=== PATIENT | female | born 1995 | race American Indian/Alaskan Native ===

== ENCOUNTER 2021-03-08 11:00 | Emergency (ER) | payer SELFPAY ==
[2021-03-08 11:40] VITALS: BP 110/68
--- NOTE | 2021-03-08 11:40 | Emergency Department Report ---
ED N/V/D HPI - General Chief complaint: Nausea/Vomiting/Diarrhea Stated complaint: CAN'T ANYTHING DOWN Time Seen by Provider: 03/08/21 11:39 Source: patient Mode of arrival: Ambulatory Limitations: No Limitations - History of Present Illness Initial comments: 25-year-old female who reports no significant past medical history presents ER today with complaints of nausea vomiting diarrhea. She states that her symptoms started 3 days ago. She reports associated diffuse abdominal discomfort, urinary frequency as well as low back pain. She does admit that she was around one of her friends who had similar symptoms of a stomach virus. She reports no bad food intake or recent travel or recent antibiotic use. She denies any fever or chills. She states that her last menstrual cycle was towards the end of January. Reports no additional symptoms at this time. MD complaint: nausea, vomiting, diarrhea, abdominal pain -: days(s) (3) - Related Data Previous Rx's Medication Instructions Recorded Last Taken Type Ondansetron [Zofran Odt] 4 mg PO Q8HR PRN #15 tab.rapdis 03/08/21 Unknown Rx cephALEXin [Keflex] 500 mg PO Q6HR #30 capsule 03/08/21 Unknown Rx Allergies Allergy/AdvReac Type Severity Reaction Status Date / Time amoxicillin Allergy Hives Verified 03/08/21 11:09 ibuprofen [From Motrin] Allergy Vomiting Verified 03/08/21 11:14 ED Review of Systems ROS: Stated complaint: CAN'T ANYTHING DOWN Other details as noted in HPI Comment: All other systems reviewed and negative Constitutional: denies: chills, fever Eyes: denies: eye pain, eye discharge, vision change ENT: denies: ear pain, throat pain, dental pain, hearing loss, epistaxis, congestion Respiratory: denies: cough, shortness of breath, SOB with exertion, SOB at rest, wheezing Cardiovascular: denies: chest pain, palpitations, dyspnea on exertion, edema, syncope, paroxysmal nocturnal dyspnea Gastrointestinal: abdominal pain, nausea, vomiting, diarrhea. denies: constipation, hematemesis, melena Genitourinary: frequency. denies: urgency, dysuria, hematuria, discharge, abnormal menses Musculoskeletal: denies: back pain, joint swelling, arthralgia Skin: denies: rash, lesions, change in color, change in hair/nails Neurological: denies: headache, weakness, numbness, paresthesias, confusion, abnormal gait, vertigo Psychiatric: denies: anxiety, depression, auditory hallucinations, visual hallucinations, homicidal thoughts, suicidal thoughts Hematological/Lymphatic: denies: easy bleeding, easy bruising, swollen glands ED Past Medical Hx - Past Medical History Previous Medical History?: No - Surgical History Past Surgical History?: Yes Additional Surgical History: Throat x 2, Right wrist surgery - Social History Smoking Status: Current Every Day Smoker Substance Use Type: Marijuana - Medications Home Medications: Home Medications Medication Instructions Recorded Confirmed Last Taken Type Ondansetron [Zofran Odt] 4 mg PO Q8HR PRN #15 tab.rapdis 03/08/21 Unknown Rx cephALEXin [Keflex] 500 mg PO Q6HR #30 capsule 03/08/21 Unknown Rx ED Physical Exam - General Limitations: No Limitations General appearance: alert, in no apparent distress - Head Head exam: Present: atraumatic, normocephalic, normal inspection - Eye Eye exam: Present: normal appearance, PERRL, EOMI Pupils: Present: normal accommodation - ENT ENT exam: Present: normal exam, mucous membranes moist - Neck Neck exam: Present: normal inspection, full ROM - Respiratory Respiratory exam: Present: normal lung sounds bilaterally. Absent: respiratory distress, wheezes, rales, rhonchi - Cardiovascular Cardiovascular Exam: Present: regular rate, normal rhythm, normal heart sounds - GI/Abdominal GI/Abdominal exam: Present: soft. Absent: distended, tenderness, guarding, rebound - Neurological Exam Neurological exam: Present: alert, oriented X3, CN II-XII intact, normal gait - Psychiatric Psychiatric exam: Present: normal affect, normal mood - Skin Skin exam: Present: intact ED Course Vital Signs 03/08/21 11:12 Temperature 98.5 F Pulse Rate 94 H Respiratory 16 Rate Blood Pressure 110/68 O2 Sat by Pulse 98 Oximetry ED Medical Decision Making - Lab Data Result diagrams: 03/08/21 13:18 03/08/21 13:18 - Radiology Data Radiology results: report reviewed [facility] [address] [place] [address] Ultrasound Report Signed Patient: JUAN M BENAVIDEZ MR#: [id number] [birth year] : 1995 Acct:[id number] Age/Sex: 25 / F ADM Date: 03/08/21 Loc: ED Attending Dr: Ordering Physician: CARLO JOHNSON Date of Service: 03/08/21 Procedure(s): US OB transvaginal Accession Number(s): [id number] cc: CARLO JOHNSON ULTRASOUND OBSTETRIC INDICATION / CLINICAL INFORMATION: abdominal pain/. Pelvic pain / cramping. Serum hCG = 340.3. Clinical Gestational Age (GA) in weeks, days: 7, 0 TECHNIQUE: Transvaginal. COMPARISON: None available. FINDINGS: UTERUS: No intrauterine . No acute abnormality. ADNEXA: Right adnexal fluid collection measuring 0.8 cm with surrounding circumferential soft tissue. No definite yolk sac or pole. Left ovary not definitely vi sualized. FREE FLUID: Small amount of free fluid in the cul-de-sac. ADDITIONAL FINDINGS: None. IMPRESSION: 1. No acute or . 2. Right adnexal fluid collection with no definite yolk sac or pole. Right adnexal ectopic cannot be excluded. 3. Small amount of free fluid in the cul-de-sac. CRITICAL RESULT Time of Discovery (TELESALES SPECIALIST/CDT): 2:00 PM Time of Communication (TELESALES SPECIALIST/CDT): 2:05 PM Licensed Practitioner Receiving Report: Nurse Edmond in the ED Read-Back Performed: Yes. Signer Name: Ney Carrasco MD Signed: 03/08/2021 3:09 PM Workstation Name: [id number] Transcribed By: DT Dictated By: Eugene Carrasco MD Electronically Authenticated By: Eugene Carrasco MD Signed Date/Time: 03/08/21 1509 DD/ 1578 TD/TT: - Medical Decision Making Patient urinalysis was positive for UTI. hCG was positive. Patient had eloped from the ER but was called to come back given her results. Labs were obtained, CBC and a CMP unremarkable. Quant hCG measured at 340. Ultrasound showed No acute or 2. Right adnexal fluid collection with no definite yolk sac or pole. Right adnexal ectopic cannot be excluded. Small amount of free fluid in the cul-de-sac. Discussed results with patient. She stated that she has not been having much abdominal nor pelvic pain just Discomfort from when she would vomit or have diarrhea. She is not currently having any abdominal pain. She has a soft nontender abdomen. She denies any abnormal vaginal bleeding. She is currently not toxic or any acute distress. She appears her hydrated. Her vital signs are stable. Discussed case with Dr. Retana, given the low quant hCG, she still feels like is too early to truly tell and recommend that patient follow-up in outpatient clinic in 7 days for repeat quant measurement and ultrasound. In the meantime patient will be treated for her UTI, with antibiotics as well as given medication to help with her vomiting and diarrhea. Discussed recommendation per discussion with BR[facility]EL[facility] SEWING MACHINE OPERATOR, patient expressed understanding of all instructions and agree with plan. Patient stable at time of discharge. Critical care attestation.: If time is entered above; I have spent that time in minutes in the direct care of this critically ill patient, excluding procedure time. ED Disposition Clinical Impression: UTI (urinary tract infection), Gastroenteritis, Early stage of Disposition: 01 HOME / SELF CARE / HOMELESS Is pt being admited?: No Does the pt Need Aspirin: No Condition: Stable Instructions: Viral Gastroenteritis, Adult, Srxa-eo-[id number], First Trimester of , Rrss-[id number], Food Choices to Help Relieve Diarrhea, Adult, Urinary Tract Infection, Adult, [id number] Additional Instructions: Recommend I take the Zofran as prescribed to help with nausea. Recommend taking Tylenol as needed for any pain as this is the safest thing to take in . It is important that you follow-up with BRIM WELT SEWING MACHINE OPERATOR listed on your discharge instructions in 7 days for repeat quant hCG but return sooner to the ER if at any point you develop severe low abdominal/pelvic pain and or vaginal bleeding. Prescriptions: cephALEXin [Keflex] 500 mg PO Q6HR #30 capsule Ondansetron [Zofran Odt] 4 mg PO Q8HR PRN #15 tab.rapdis PRN Reason: Vomiting Referrals: [facility] [Provider Group] - 3-5 Days (Follow up in 7 days ) [facility] [Provider Group] - 3-5 Days (Follolw up in 7 days ) Forms: Work/School Release Form(ED) Time of Disposition: 15:33
[2021-03-08 12:40] LABS: Bacteria,Urine 4+ /HPF (Negative); Bilirubin,Urine NEG (Negative); Blood,Urine NEG (Negative); Color,Urine Yellow (Yellow); Mucus,Urine 3+ /HPF; Protein,Urine <15 mg/dL mg/dL (Negative)
[2021-03-08 12:41] LABS: HCG Qualitative,Urine Positive (Negative)
[2021-03-08] MEDS ORDERED: ONDANSETRON 4 MG ODT TAB PO ONE (13:16)
[2021-03-08 13:47] LABS: Basophils % (Auto) 0.5 % (0.0-1.8); Eosinophils % (Auto) 0.5 % (0.0-4.3); Hematocrit 37.9 % (30.3-42.9); Hemoglobin 12.9 gm/dl (10.1-14.3); Lymphocytes # (Auto) 1.7 K/mm3 (1.2-5.4); Lymphocytes % (Auto) 29.8 % (13.4-35.0); Mean Corpuscular HGB Conc 34 % (30-34); Mean Corpuscular Volume 97 fl (79-97); Monocytes # (Auto) 0.6 K/mm3 (0.0-0.8); Monocytes % (Auto) 10.4 % (0.0-7.3); Platelet Count 263 K/mm3 (140-440); Red Blood Count 3.92 M/mm3 (3.65-5.03); Red Cell Distribution Width 13.1 % (13.2-15.2)
[2021-03-08 14:06] LABS: Alanine Aminotransferase 18 units/L (7-56); Blood Urea Nitrogen 8 mg/dL (7-17); Calcium 9.2 mg/dL (8.4-10.2); Hemolysis Index 2
[2021-03-08 14:09] LABS: BUN/Creatinine Ratio 16
--- NOTE | 2021-03-08 15:13 | Ultrasound Report ---
ULTRASOUND OBSTETRIC INDICATION / CLINICAL INFORMATION: abdominal pain/. Pelvic pain / cramping. Serum hCG = 340.3 . Clinical Gestational Age (GA) in weeks, days: 7, 0 TECHNIQUE: Transvaginal. COMPARISON: None available. FINDINGS: UTERUS: No intrauterine . No acute abnormality. ADNEXA: Right adnexal fluid collection measuring 0.8 cm with surrounding circumferential soft tissue. No definite yolk sac or pole. Left ovary not definitely visualized. FREE FLUID: Small amount of free fluid in the cul-de-sac. ADDITIONAL FINDINGS: None. IMPRESSION: 1. No acute or . 2. Right adnexal fluid collection with no definite yolk sac or pole. Right adnexal ectopic preg laxmi cannot be excluded. 3. Small amount of free fluid in the cul-de-sac. CRITICAL RESULT Time of Discovery (RETURNS CLERK/CDT): 2:00 PM Time of Communication (RETURNS CLERK/CDT): 2:05 PM Licensed Practitioner Receiving Report: Nurse Edmond in the ED Read-Back Performed: Yes. Signer Name: Ney Carrasco MD Signed: 03/08/2021 3:09 PM Workstation Name: [id number]
== END 2021-03-08 18:49 | disposition home or self-care (01) ==
LOC: ED 11:00
DX: O23.41 Unspecified infection of urinary tract in pregnancy, first trimester (principal); O26.891 Other specified pregnancy related conditions, first trimester; Z3A.01 Less than 8 weeks gestation of pregnancy; K52.9 Noninfective gastroenteritis and colitis, unspecified; Z88.0 Allergy status to penicillin; Z88.8 Allergy status to other drugs, medicaments and biological substances; F17.200 Nicotine dependence, unspecified, uncomplicated; F12.90 Cannabis use, unspecified, uncomplicated
CPT/HCPCS: 36415; 76817; 80053; 81001; 81025; 84702; 85025; 87086; 99284; Q0162

== ENCOUNTER 2021-03-15 09:53 | Emergency (ER) | payer MEDICAID ==
--- NOTE | 2021-03-15 11:06 | Emergency Department Report ---
ED HPI - General Chief complaint: Abdominal Pain Stated complaint: MILD CRAMPS EARLY Time Seen by Provider: 03/15/21 11:00 Source: patient Mode of arrival: Ambulatory Limitations: No Limitations - History of Present Illness Initial comments: Patient is a 25-year-old female presenting to the emergency room stating that she wants to be rechecked. She states that she was unable to get an appointment with an GARAGE ATTENDANT so she returned to the emergency room to be reevaluated. Patient was evaluated in the emergency department on 03/08/2021, her hCG quant at that time was 340. She had ultrasound performed at that time which showed 1. No acute or . 2. Right adnexal fluid collection with no definite yolk sac or pole. Right adnexal ectopic cannot be excluded. 3. Small amount of free fluid in the cul-de-sac. Patient was advised to have close GARAGE ATTENDANT follow-up. She states that she was unable to follow-up. She states that she has some mild lower abdominal cramping but denies any significant pain. She denies any fever, vomiting, diarrhea, urinary symptoms, vaginal bleeding. She states her last menstrual cycle was 01/13/2021. She states this is her first . - Related Data Previous Rx's Medication Instructions Recorded Last Taken Type Ondansetron [Zofran Odt] 4 mg PO Q8HR PRN #15 tab.rapdis 03/08/21 Unknown Rx cephALEXin [Keflex] 500 mg PO Q6HR #30 capsule 03/08/21 Unknown Rx Allergies Allergy/AdvReac Type Severity Reaction Status Date / Time amoxicillin Allergy Hives Verified 03/15/21 10:05 ibuprofen [From Motrin] Allergy Vomiting Verified 03/15/21 10:05 ED Review of Systems ROS: Stated complaint: MILD CRAMPS EARLY Other details as noted in HPI Comment: All other systems reviewed and negative ED Past Medical Hx - Past Medical History Previous Medical History?: No - Surgical History Additional Surgical History: Throat x 2, Right wrist surgery - Social History Smoking Status: Never Smoker Substance Use Type: None - Medications Home Medications: Home Medications Medication Instructions Recorded Confirmed Last Taken Type Ondansetron [Zofran Odt] 4 mg PO Q8HR PRN #15 tab.rapdis 03/08/21 Unknown Rx cephALEXin [Keflex] 500 mg PO Q6HR #30 capsule 03/08/21 Unknown Rx ED Physical Exam - General Limitations: No Limitations General appearance: alert, in no apparent distress - Head Head exam: Present: atraumatic, normocephalic - Eye Eye exam: Present: normal appearance - ENT ENT exam: Present: mucous membranes moist - Respiratory Respiratory exam: Present: normal lung sounds bilaterally. Absent: respiratory distress, wheezes, rales, rhonchi, stridor, chest wall tenderness, accessory muscle use, decreased breath sounds, prolonged expiratory - Cardiovascular Cardiovascular Exam: Present: regular rate, normal rhythm, normal heart sounds. Absent: systolic murmur, diastolic murmur, rubs, gallop - GI/Abdominal GI/Abdominal exam: Present: soft, normal bowel sounds. Absent: distended, tenderness, guarding, rebound, rigid - Neurological Exam Neurological exam: Present: alert, oriented X3 - Psychiatric Psychiatric exam: Present: normal affect, normal mood - Skin Skin exam: Present: warm, dry, intact ED Course Vital Signs 03/15/21 03/15/21 10:10 12:39 Temperature 98.5 F Pulse Rate 83 Respiratory 20 Rate Blood Pressure 96/53 Blood Pressure 127/61 [Right] O2 Sat by Pulse 96 Oximetry ED Medical Decision Making - Radiology Data Radiology results: report reviewed Ordering Physician: ALEXIS EDUARDO Date of Service: 03/15/21 Procedure(s): US OB transvaginal Accession Number(s): [id number] cc: ALEXIS EDUARDO ULTRASOUND OBSTETRIC INDICATION: , cramping. TECHNIQUE: Transabdominal and Transvaginal. COMPARISON: OB ultrasound dated 03/08/2021. FINDINGS: GESTATIONAL SAC: Well-defined oval shape and intrauterine in location. Gestational sac diameter measures 0.64 cm, consistent with an estimated age of 5 weeks, 2 days. YOLK SAC: Present. EMBRYO/FETUS: None seen. ADNEXA: A right ovarian hypoechoic structure is again seen measuring 1.2 x 1.1 cm, previously 1.0 x 0.6 cm. No other significant abnormalities. FREE FLUID: None. ADDITIONAL FINDINGS: None. IMPRESSION: 1. Early intrauterine as above without visualization of a pole. Estimated gestational age is 5 weeks, 2 days. 2. Probable evolving right ovarian corpus luteal cyst. Signer Name: Marshal Orozco MD Signed: 03/15/2021 12:21 PM Workstation Name: [id number] Transcribed By: PAUL Dictated By: Marshal Orozco MD Electronically Authenticated By: Marshal Orozco MD Signed Date/Time: 03/15/21 1221 DD/ 1217 TD/TT: - Medical Decision Making Patient is a 25-year-old female presenting to the emergency room stating that she wants to be rechecked. She states that she was unable to get an appointment with an GARAGE ATTENDANT so she returned to the emergency room to be reevaluated. Patient was evaluated in the emergency department on 03/08/2021, her hCG quant at that time was 340. She had ultrasound performed at that time which showed 1. No acute or . 2. Right adnexal fluid collection with no definite yolk sac or pole. Right adnexal ectopic cannot be excluded. 3. Small amount of free fluid in the cul-de-sac. Patient was advised to have close GARAGE ATTENDANT follow-up. She states that she was unable to follow-up. She states melissa t she has some mild lower abdominal cramping but denies any significant pain. She denies any fever, vomiting, diarrhea, urinary symptoms, vaginal bleeding. She states her last menstrual cycle was 01/13/2021. She states this is her first . Vitals are stable. No abdominal tenderness on exam, no guarding, no rebound, no rigidity, normal bowel sounds. hCG quant has increased appropriately from previous, her hCG quant is 4809. OB US: 1. Early intrauterine as above without visualization of a pole. Estimated gestational age is 5 weeks, 2 days. 2. Probable evolving right ovarian corpus luteal cyst. Discussed all results with patient and answer questions. Discussed the importance of GARAGE ATTENDANT follow-up. Advised patient May take Tylenol as needed for any cramping. Increase your fluid intake. Please practice pelvic rest, no sexual intercourse, no douching, no tampons. Follow-up with GARAGE ATTENDANT. Return to emergency room for any new or worsening symptoms. Critical care attestation.: If time is entered above; I have spent that time in minutes in the direct care of this critically ill patient, excluding procedure time. ED Disposition Clinical Impression: Abdominal cramping Qualifiers: Weeks of gestation: less than 8 weeks Qualified Code(s): Z3A.01 - Less than 8 weeks gestation of Ovarian cyst Qualifiers: Laterality: right Qualified Code(s): N83.201 - Unspecified ovarian cyst, right side Disposition: HOME / SELF CARE / HOMELESS Is pt being admited?: No Does the pt Need Aspirin: No Condition: Stable Instructions: Ovarian Cyst, First Trimester of , Abdominal Pain (ED) Additional Instructions: May take Tylenol as needed for any cramping. Increase your fluid intake. Please practice pelvic rest, no sexual intercourse, no douching, no tampons. Follow-up with GARAGE ATTENDANT. Return to emergency room for any new or worsening symptoms. Referrals: [facility] [Provider Group] - 2-3 Days Time of Disposition: 12:33
--- NOTE | 2021-03-15 12:25 | Ultrasound Report ---
ULTRASOUND OBSTETRIC INDICATION: , cramping. TECHNIQUE: Transabdominal and Transvaginal. COMPARISON: OB ultrasound dated 03/08/2021. FINDINGS: GESTATIONAL SAC: Well-defined oval shape and intrauterine in location. Gestational sac diameter measu res 0.64 cm, consistent with an estimated age of 5 weeks, 2 days. YOLK SAC: Present. EMBRYO/FETUS: None seen. ADNEXA: A right ovarian hypoechoic structure is again seen measuring 1.2 x 1.1 cm, previously 1.0 x 0 .6 cm. No other significant abnormalities. FREE FLUID: None. ADDITIONAL FINDINGS: None. IMPRESSION: 1. Early intrauterine as above without visualization of a pole. Estimated gestational age is 5 weeks, 2 days. 2. Probable evolving right ovarian corpus luteal cyst. Signer Name: Marshal Orozco MD Signed: 03/15/2021 12:21 PM Workstation Name: [id number]
[2021-03-15 12:39] VITALS: BP 127/61
== END 2021-03-15 12:40 | disposition home or self-care (01) ==
LOC: ED 09:53
DX: O26.891 Other specified pregnancy related conditions, first trimester (principal); O34.81 Maternal care for other abnormalities of pelvic organs, first trimester; Z3A.01 Less than 8 weeks gestation of pregnancy; R10.30 Lower abdominal pain, unspecified; Z98.890 Other specified postprocedural states; Z88.0 Allergy status to penicillin; Z88.6 Allergy status to analgesic agent
CPT/HCPCS: 36415; 76801; 76817; 84702; 99283; 99284

== ENCOUNTER 2021-04-24 10:34 | Emergency (ER) | payer MEDICAID ==
--- NOTE | 2021-04-24 11:35 | Emergency Department Report ---
ED HPI - General Stated complaint: /VOMITING/CRAMPS Time Seen by Provider: 04/24/21 11:33 Source: patient Mode of arrival: Ambulatory Limitations: No Limitations - History of Present Illness Initial comments: G1 COMES TO ER WITH VOMITING ASSOCIATED WITH PREG ALSO CO B LOWER QUAD PAIN NO VAG DC NO VAG BLEEDING LMP 02-08 Complaint: abdominal pain -: Gradual, days(s) Radiation: LLQ, RLQ Severity: mild Severity scale (0 -10): 3 Quality: cramping Consistency: constant Improves with: none Worsens with: none Associated symptoms: denies other symptoms Vaginal bleeding: none :: Yes - Related Data : 1 Previous Rx's Medication Instructions Recorded Last Taken Type Ondansetron [Zofran Odt] 4 mg PO Q8HR PRN #15 tab.rapdis 03/08/21 Unknown Rx cephALEXin [Keflex] 500 mg PO Q6HR #30 capsule 03/08/21 Unknown Rx Allergies Allergy/AdvReac Type Severity Reaction Status Date / Time amoxicillin Allergy Hives Verified 03/15/21 10:05 ibuprofen [From Motrin] Allergy Vomiting Verified 03/15/21 10:05 ED Review of Systems ROS: Stated complaint: /VOMITING/CRAMPS Other details as noted in HPI Comment: All other systems reviewed and negative ED Past Medical Hx - Past Medical History Previous Medical History?: No - Surgical History Additional Surgical History: Throat x 2, Right wrist surgery - Social History Smoking Status: Never Smoker Substance Use Type: None - Medications Home Medications: Home Medications Medication Instructions Recorded Confirmed Last Taken Type Ondansetron [Zofran Odt] 4 mg PO Q8HR PRN #15 tab.rapdis 03/08/21 Unknown Rx cephALEXin [Keflex] 500 mg PO Q6HR #30 capsule 03/08/21 Unknown Rx ED Physical Exam - General General appearance: alert, in no apparent distress - Head Head exam: Present: atraumatic, normocephalic - Eye Eye exam: Present: normal appearance - ENT ENT exam: Present: mucous membranes moist - Neck Neck exam: Present: normal inspection - Respiratory Respiratory exam: Present: normal lung sounds bilaterally. Absent: respiratory distress - Cardiovascular Cardiovascular Exam: Present: regular rate, normal rhythm. Absent: systolic murmur, diastolic murmur, rubs, gallop - GI/Abdominal GI/Abdominal exam: Present: soft, normal bowel sounds - Extremities Exam Extremities exam: Present: normal inspection - Back Exam Back exam: Present: normal inspection - Neurological Exam Neurological exam: Present: alert, oriented X3 - Psychiatric Psychiatric exam: Present: normal affect, normal mood - Skin Skin exam: Present: warm, dry, intact, normal color. Absent: rash ED Course Vital Signs 04/24/21 11:32 Temperature 98.2 F Pulse Rate 77 Respiratory 16 Rate Blood Pressure 98/43 [Left] O2 Sat by Pulse 98 Oximetry - Reevaluation(s) Reevaluation #1: 04/24/21 14:20 NO VOMITING IN ER ED Medical Decision Making - Lab Data Result diagrams: 04/24/21 11:40 04/24/21 11:46 - Radiology Data Radiology results: report reviewed, image reviewed NO ECTOPIC - Medical Decision Making Labs 04/24/21 04/24/21 04/24/21 11:40 11:40 11:40 WBC 5.1 RBC 3.70 Hgb 12.3 Hct 35.6 MCV 96 MCH 33 H MCHC 35 H RDW 13.0 L Plt Count 190 Lymph % (Auto) 38.6 H [place] % (Auto) 8.2 H Eos % (Auto) 1.2 Baso % (Auto) 1.6 Lymph # (Auto) 2.0 [place] # (Auto) 0.4 Eos # (Auto) 0.1 Baso # (Auto) 0.1 Seg Neutrophils % 50.4 Seg Neutrophils # 2.6 PT 14.0 INR 0.97 Sodium Potassium Chloride Carbon Dioxide Anion Gap BUN Creatinine Estimated GFR BUN/Creatinine Ratio Glucose Calcium HCG, Quant [id number] H 04/24/21 11:46 WBC RBC Hgb Hct MCV MCH MCHC RDW Plt Count Lymph % (Auto) [place] % (Auto) Eos % (Auto) Baso % (Auto) Lymph # (Auto) [place] # (Auto) Eos # (Auto) Baso # (Auto) Seg Neutrophils % Seg Neutrophils # PT INR Sodium 136 L Potassium 4.2 Chloride 104.4 Carbon Dioxide 21 L Anion Gap 15 BUN 10 Creatinine 0.4 L Estimated GFR > 60 BUN/Creatinine Ratio 25 Glucose 76 Calcium 9.8 HCG, Quant Vital Signs 04/24/21 11:32 Temperature 98.2 F Pulse Rate 77 Respiratory 16 Rate Blood Pressure 98/43 [Left] O2 Sat by Pulse 98 Oximetry 1400 LEFT AMA- DUE TO WAIT REFUSED TO GIVE URINE - Differential Diagnosis RO ECTOPIC/AB Critical care attestation.: If time is entered above; I have spent that time in minutes in the direct care of this critically ill patient, excluding procedure time. ED Disposition Clinical Impression: , Vomiting Abdominal pain Qualifiers: Abdominal location: lower abdomen, unspecified Qualified Code(s): R10.30 - Lower abdominal pain, unspecified Disposition: 07 LEFT AGAINST MEDICAL ADVICE Is pt being admited?: No Does the pt Need Aspirin: No Condition: Stable Referrals: PRIMARY CARE, [Primary Care Provider] - 3-5 Days Time of Disposition: 13:57
[2021-04-24 11:36] VITALS: BP 98/43
[2021-04-24 12:06] LABS: Basophils # (Auto) 0.1 K/mm3 (0.0-0.1); Basophils % (Auto) 1.6 % (0.0-1.8); Eosinophils # (Auto) 0.1 K/mm3 (0.0-0.4); Eosinophils % (Auto) 1.2 % (0.0-4.3); Hematocrit 35.6 % (30.3-42.9); Hemoglobin 12.3 gm/dl (10.1-14.3); Lymphocytes % (Auto) 38.6 % (13.4-35.0); Mean Corpuscular HGB Conc 35 % (30-34); Mean Corpuscular Volume 96 fl (79-97); Monocytes # (Auto) 0.4 K/mm3 (0.0-0.8); Monocytes % (Auto) 8.2 % (0.0-7.3); Platelet Count 190 K/mm3 (140-440)
[2021-04-24 12:19] LABS: Blood Urea Nitrogen 10 mg/dL (7-17); Calcium 9.8 mg/dL (8.4-10.2); Hemolysis Index 4
[2021-04-24 12:24] LABS: BUN/Creatinine Ratio 25
[2021-04-24 12:49] LABS: INR 0.97 (0.87-1.13)
[2021-04-24] MEDS ORDERED: ONDANSETRON 4 MG/2 ML INJ IV ONE (13:47)
[2021-04-24] MEDS ORDERED: SODIUM CHLORIDE 0.9% 1000 ML 1,000 ML IV ONE (13:47)
--- NOTE | 2021-04-24 13:47 | Ultrasound Report ---
ULTRASOUND OBSTETRIC Indication: Sudden onset abdominal pain within the first trimester. Findings: There is a single, living intrauterine . [place]-rump length = 4.0 cm = 10 weeks, 6 day(s). heart rate is 158 beats per minute. The ovaries are normal. There is no free fluid. Impression: Single, living intrauterine with estimated sonographic age of 10 weeks, 6 day(s). There is a 2.3 cm subchorionic collection adjacent to the gestational sac that may represent a subchorionic he morrhage. Recommend short-term sonographic follow-up to evaluate stability. Signer Name: Pipo Mckay MD Signed: 04/24/2021 1:43 PM Workstation Name: [id number]
== END 2021-04-24 11:45 | disposition left against medical advice (07) ==
LOC: ED 10:34
DX: O21.9 Vomiting of pregnancy, unspecified (principal); O26.891 Other specified pregnancy related conditions, first trimester; R10.9 Unspecified abdominal pain; Z3A.10 10 weeks gestation of pregnancy; Z98.890 Other specified postprocedural states; Z88.1 Allergy status to other antibiotic agents; Z88.8 Allergy status to other drugs, medicaments and biological substances
CPT/HCPCS: 36415; 76801; 80048; 84702; 85025; 85610; 86900; 86901; 99282; 99283

== ENCOUNTER 2021-07-18 07:25 | Outpatient (CLI) | payer MEDICAID ==
[2021-07-18 08:45] VITALS: BP 97/61
== END 2021-07-18 08:57 | disposition home or self-care (01) ==
LOC: TRG 07:25 → ED 07:25 → EDSTATUS 07:49 → APU 07:50 → TRG 08:57
PROVIDERS: ATTEND Obstetrics & Gynecology
DX: Z34.92 Encounter for supervision of normal pregnancy, unspecified, second trimester (principal); Z3A.23 23 weeks gestation of pregnancy
CPT/HCPCS: 59020; 59025

== ENCOUNTER 2021-08-16 17:11 | Outpatient (CLI) | payer MEDICAID ==
[2021-08-16 17:40] VITALS: BP 97/50
[2021-08-16] MEDS ORDERED: LACTATED RINGERS 500 ML IV ONE (18:28)
--- NOTE | 2021-08-16 19:09 | Ultrasound Report ---
US OB limited, US OB BPP wo non-stress INDICATION: R/O abruption. TECHNIQUE: Transabdominal. COMPARISON: None available. FINDINGS: There is a single intrauterine . Heart Rate: 137 beats per minute. Position: cephalic. Biophysical Profile: breathing movements: 2 movements:2 posture and tone:2 Qualitative amniotic fluid volume: 2 IMPRESSION: 1. No evidence for abruption. Biophysical profile is 8 of 8. Signer Name: Delroy Franks MD Signed: 08/16/2021 7:05 PM Workstation Name: [id number]
== END 2021-08-16 19:02 | disposition home or self-care (01) ==
LOC: TRG 17:11 → APU 17:13 → TRG 19:02
PROVIDERS: ATTEND Obstetrics & Gynecology
DX: O36.8120 Decreased fetal movements, second trimester, not applicable or unspecified (principal); O26.892 Other specified pregnancy related conditions, second trimester; R10.9 Unspecified abdominal pain; Z3A.27 27 weeks gestation of pregnancy
CPT/HCPCS: 59025; 76815; 76819

== ENCOUNTER 2021-10-30 14:36 | Outpatient (CLI) | payer MEDICAID ==
[2021-10-30 16:44] VITALS: BP 96/59
--- NOTE | 2021-10-30 17:09 | Ultrasound Report ---
ULTRASOUND OBSTETRIC INDICATION / CLINICAL INFORMATION: BPP/KOLE. Clinical Gestational Age (GA) in weeks, days: 37, 6 TECHNIQUE: Transabdominal. COMPARISON: OB ultrasound dated 08/16/2021 and 04/24/2021 FINDINGS: Single intrauterine . Biparietal Diameter = 8.0 cm = 32, 0 weeks, days Head Circumference = 30.1 cm = 33, 3 weeks, days Abdominal Circumference = 28.4 cm = 32, 3 weeks, days Femur Length = 6.2 cm = 32, 0 weeks, days Average Ultrasound Age (AUA) = 32, 3 weeks, days Heart Rate: 146 beats per minute. Estimated Weight in grams (if calculated): 1963 Estimated Weight Growth Percentile (if calculated): Not calculated Position: cephalic. Placenta: posterior and free of the os. Amniotic Fluid Volume: normal Amniotic Fluid Index (KOLE) in cm (if calculated): 16.2. Maternal Adnexa: No significant abnormality. UMBILICAL CORD DOPPLER: - S/D Ratio Average: 2.7 - Waveform: Normal. Persistent. - Resistive Index (RI) Average: 0.62 - Waveform: Normal. Persistent. - Pulsitivity Index (PI) Average: Not calculated BREATHING MOVEMENT = 2 GROSS BODY MOVEMENT = 2 TONE = 2 QUALITATIVE AMNIOTIC FLUID VOLUME = 2 TOTAL BIOPHYSICAL SCORE = 8/8 IMPRESSION: 1. Single, living intrauterine with estimated sonographic age of 32, 3 weeks, days. There i s discrepancy between the clinical age (37 weeks 6 days) and the ultrasound age (32 weeks 3 days). Ba sed on the estimated gestational age from ultrasound dated 04/24/2021 today's examination suggests in trauterine growth restriction. 2. Biophysical Score = 8/8 3. No abnormal findings on umbilical cord Doppler Signer Name: Jamari Solis DO Signed: 10/30/2021 5:04 PM Workstation Name: [id number]
[2021-10-30] MEDS ORDERED: LACTATED RINGERS 500 ML IV ONE (18:17)
== END 2021-10-30 17:28 | disposition home or self-care (01) ==
LOC: TRG 14:36 → APU 14:37 → TRG 17:28
PROVIDERS: ATTEND Obstetrics & Gynecology
DX: Z34.83 Encounter for supervision of other normal pregnancy, third trimester (principal); Z3A.37 37 weeks gestation of pregnancy
CPT/HCPCS: 59025; 76805; 76819; 76820

== ENCOUNTER 2021-11-07 09:28 | Outpatient (CLI) | payer MEDICAID ==
--- NOTE | 2021-11-07 11:57 | Ultrasound Report ---
Biophysical profile Ultrasound HISTORY: SGA. TECHNIQUE: Grayscale and color imaging performed. COMPARISON: Biophysical profile ultrasound from 10/30/2021 FINDINGS: Fetus received a score of 2 out of 2 for breathing, movement, posture/tone, and KOLE. Total score was 8 out of 8. Heart rate during this portion of the exam was 133 bpm. Presentation is cephali c. IMPRESSION: Normal biophysical profile. Signer Name: Khang Barboza MD Signed: 11/07/2021 11:53 AM Workstation Name: [id number]
== END 2021-11-07 12:15 | disposition home or self-care (01) ==
LOC: TRG 09:28 → APU 09:30 → TRG 12:15
PROVIDERS: ATTEND Obstetrics & Gynecology
DX: Z34.93 Encounter for supervision of normal pregnancy, unspecified, third trimester (principal); Z3A.39 39 weeks gestation of pregnancy
CPT/HCPCS: 59025; 76819

== ENCOUNTER 2021-11-13 11:37 | Outpatient (CLI) | payer MEDICAID ==
[2021-11-13 12:14] VITALS: BP 95/51
--- NOTE | 2021-11-13 13:57 | Ultrasound Report ---
ULTRASOUND BIOPHYSICAL PROFILE INDICATION: wellbeing. COMPARISON: 11/07/2021 FINDINGS: heart rate is 148 beats per minute. breathing movement = 2 Gross body movement = 2 tone = 2 Qualitative amniotic fluid volume = 2 IMPRESSION: biophysical profile = 02/16 Signer Name: Raheem Dale Jr, MD Signed: 11/13/2021 1:52 PM Workstation Name: [id number]
--- NOTE | 2021-11-13 14:38 | Ultrasound Report ---
ULTRASOUND OBSTETRIC COMPLETE INDICATION / CLINICAL INFORMATION: KOLE, Growth, Dates. well-being Clinical Gestational Age (GA) in weeks.days: 39.6 TECHNIQUE: Transabdominal. COMPARISON: None available. FINDINGS: NUMBER: Single PRESENTATION: cephalic PLACENTA: posterior and free of the os. MATERNAL ADNEXA: No significant abnormality. AMNIOTIC FLUID VOLUME: normal AMNIOTIC FLUID INDEX (KOLE) in cm (if measured): 18.5 ANATOMY: anatomical survey was not performed. MEASUREMENTS: - Biparietal Diameter = 8.1 cm = 32.4 weeks.days - Head Circumference = 30.5 cm = 34.0 weeks.days - Abdominal Circumference = 29.3 cm = 33.2 weeks.days - Femur Length = 6.2 cm = 32.1 weeks.days - Estimated Weight (in grams, if calculated): 2090 +/- 309 - Heart Rate (beats per minute): 163 ADDITIONAL FINDINGS: None. PERCENTILE ESTIMATED WEIGHT (if calculated): Not calculated AVERAGE ULTRASOUND AGE (AUA) in weeks.days = 33.0 IMPRESSION: 1. Single intrauterine with AUA of 33.0 weeks. Signer Name: Raheem Dale Jr, MD Signed: 11/13/2021 2:34 PM Workstation Name: [id number]
--- NOTE | 2021-11-13 14:39 | Ultrasound Report ---
ULTRASOUND OBSTETRIC LIMITED INDICATION / CLINICAL INFORMATION: umbilical flow study. Clinical Gestational Age (GA) in weeks, days: 39, 6 TECHNIQUE: Transabdominal. COMPARISON: None available. FINDINGS: HEART RATE (beats per minute): 163 UMBILICAL CORD DOPPLER: - S/D Ratio Average: 2.7 - Waveform: Normal. Persistent. - Resistive Index (RI) Average: 0.63 - Waveform: Normal. Persistent. - Pulsitivity Index (PI) Average: Not measured ADDITIONAL FINDINGS: None. IMPRESSION: 1. No significant abnormality in the S/D ratio or resistive indices Signer Name: Jamari Solis DO Signed: 11/13/2021 2:35 PM Workstation Name: [id number]
== END 2021-11-13 14:02 | disposition home or self-care (01) ==
LOC: TRG 11:37 → APU 11:39 → TRG 14:02
PROVIDERS: ATTEND Obstetrics & Gynecology
DX: Z34.83 Encounter for supervision of other normal pregnancy, third trimester (principal); Z3A.39 39 weeks gestation of pregnancy
CPT/HCPCS: 76816; 76819; 76820

== ENCOUNTER 2022-02-18 09:01 | Emergency (ER) | payer MEDICAID ==
[~2022-02-18 09:01] MED LIST: DEXTROSE 25 % IN WATER (2.5 GM) 10 ML SYRINGE IV ONE; DEXTROSE 50% IN WATER (25GM) 50 ML SYRINGE IV ONE; EPINEPHrine 1 MG/10 ML SYRINGE ONE
--- NOTE | 2022-02-18 09:45 | Emergency Department Report ---
ED CPR HPI - General Chief Complaint: Cardiac Arrest/CPR Stated Complaint: UNRESPONSIVE Time Seen by Provider: 02/18/22 09:42 Source: family Mode of arrival: Carried (Peds) Limitations: Other - History of Present Illness Initial Comments: 3mo old child brought in by mother not breathing and pulseless. Pt was last seen breathing during around 5am after bottle feed. Father returned home at 9am and mom noted child was not breathing at that time. Parents transported pt to the hospital within 10 min. - Related Data Previous Rx's Medication Instructions Recorded Last Taken Type Ondansetron [Zofran Odt] 4 mg PO Q8HR PRN #15 tab.rapdis 03/08/21 Unknown Rx cephALEXin [Keflex] 500 mg PO Q6HR #30 capsule 03/08/21 Unknown Rx Allergies Allergy/AdvReac Type Severity Reaction Status Date / Time amoxicillin Allergy Hives Verified 08/16/21 17:33 ibuprofen [From Motrin] Allergy Vomiting Verified 08/16/21 17:33 ED Review of Systems ROS: Stated complaint: UNRESPONSIVE Other details as noted in HPI ED Past Medical Hx - Past Medical History Hx Hypertension: No Hx Heart Attack/AMI: No Hx Diabetes: No Hx Deep Vein Thrombosis: No Hx Liver Disease: No Hx Renal Disease: No Hx Sickle Cell Disease: No Hx Seizures: No Hx Asthma: Yes Hx HIV: No - Surgical History Additional Surgical History: Throat x 2, Right wrist surgery - Social History Smoking Status: Current Every Day Smoker - Medications Home Medications: Home Medications Medication Instructions Recorded Confirmed Last Taken Type Ondansetron [Zofran Odt] 4 mg PO Q8HR PRN #15 tab.rapdis 03/08/21 11/17/21 Unknown Rx cephALEXin [Keflex] 500 mg PO Q6HR #30 capsule 03/08/21 11/17/21 Unknown Rx ED Physical Exam - General Limitations: Other General appearance: other (unresponisve, cyanotic) - Head Head exam: Present: atraumatic - Eye Eye exam: Present: other (unreactive) - ENT ENT exam: Present: other (Some stiffness of the jaw, difficulty opening mouth during intubation) - Neck Neck exam: Present: normal inspection - Respiratory Respiratory exam: Present: other (no spontenous respirations) - Cardiovascular Cardiovascular Exam: Present: other (Pulseless) - GI/Abdominal GI/Abdominal exam: Present: hernia (Umbilical) - Extremities Exam Extremities exam: Present: other (stiff limited extension at the knee) - Skin Skin exam: Present: cyanosis - Intubation Time Out Performed: Yes Sedative: none Laryngoscope: Mena Size: 0 ET Tube Size: 3.5 Tube Secured Depth (cm): 9 Tube Secured Location: lips Tube Placement Confirmation: visualized tube passing t, equal breath sounds bilat, no breath sounds over epi, confirmation by capnometr Patient Tolerated Procedure: well Intubation Complications: none ED Medical Decision Making - Medical Decision Making Patient brought in a cardiopulmonary arrest with last known well time 4 hours prior to arrival. Patient having stiffness of the lower extremities in the mouth during resuscitation efforts. Initial [id number] ventilation provided well IV access was obtained and patient prepped for intubation. Despite resuscitation efforts including multiple doses of epinephrine, intubation, and IV glucose for hyperglycemia patient remained in asystole. Parents in the ED and notified of patient's refer to RN code sheet for code details time of 9:22 am Critical Care Time: No Critical care attestation.: If time is entered above; I have spent that time in minutes in the direct care of this critically ill patient, excluding procedure time. ED Disposition Clinical Impression: of Disposition: 20 Is pt being admited?: No Condition: Stable Time of Disposition: 09:56
== END 2022-02-18 13:31 ==
LOC: EDBD → ED 09:01
CPT/HCPCS: 31500; 99285; J0171; J3490